=== PATIENT | female | born 1970 | race Hispanic/Latino ===

== ENCOUNTER 2016-07-21 11:38 | Day surgery (SDC) | payer BC ==
[~2016-07-21 11:38] MED LIST: HEPARIN SUB-Q NR; MARCAINE-EPI 0.25%-1:200,000 INFILTRATI ONE; ceFAZolin 2 GM in NACL 0.9% 100 ML IV ONE
[2016-07-21] MEDS ORDERED: ceFAZolin 2 GM in NACL 0.9% 100 ML IV NR (12:30)
--- NOTE | 2016-07-21 12:37 | Anesthesia Day of Surgery ---
Anesthesia Day of Surgery - Day of Surgery Patient Examined: Yes Patient H&P Reviewed: Yes Patient is NPO: Yes
--- NOTE | 2016-07-21 12:38 | Anesthesia Consultation ---
Anesthesia Consult and Med Hx Date of service: 07/21/16 - Airway Anesthetic Teeth Evaluation: Good ROM Head & Neck: Adequate Mental/Hyoid Distance: Adequate Mallampati Class: Class I Intubation Access Assessment: Good - Pulmonary Exam CTA: Yes - Cardiac Exam Cardiac Exam: RRR - Pre-Operative Health Status ASA Pre-Surgery Classification: ASA2 Proposed Anesthetic Plan: General - Pulmonary Hx Smoking: Yes (CIGARETTES 1 PPD X 26 YRS) Hx Respiratory Symptoms: No (seasonal allergy) Hx Sleep Apnea: No - Cardiovascular System Hx Hypertension: No (take red yeast to help with cholesterol) Hx Heart Attack/AMI: No - Central Nervous System Hx Seizures: No CVA: No - Endocrine Hx Renal Disease: No Hx Liver Disease: No Hx Non-Insulin Dependent Diabetes: No - Other Systems Hx Cancer: No Hx Obesity: No - Additional Comments Anesthesia Medical History Comments: NAC
[2016-07-21] MEDS ORDERED: DILAUDID IV PRN ×2 (12:39→15:24)
[2016-07-21] MEDS ORDERED: VERSED IV NR (13:00)
[2016-07-21] MEDS ORDERED: LACTATED RINGERS 1,000 ML IV SCH (13:00)
[2016-07-21] MEDS ORDERED: PEPCID PO NR (13:00)
[2016-07-21] MEDS ORDERED: DIPRIVAN 10 MG/ML IV ONE (13:50)
[2016-07-21] MEDS ORDERED: DECADRON ONE (13:50)
[2016-07-21] MEDS ORDERED: ZOFRAN ONE (13:50)
[2016-07-21] MEDS ORDERED: XYLOCAINE MPF 2% ONE (13:50)
[2016-07-21] MEDS ORDERED: DILAUDID ONE (13:51)
[2016-07-21] MEDS ORDERED: ZEMURON IV ONE (13:53)
[2016-07-21] MEDS ORDERED: ANCEF/STERILE WATER 2 GM/20 ML 2 GM/20 ML SYRINGE IV SCH (14:00)
[2016-07-21] MEDS ORDERED: TORADOL ONE (14:31)
[2016-07-21] MEDS ORDERED: MARCAINE-EPI 0.25%-1:200,000 INFILTRATI ONE (14:42)
[2016-07-21] MEDS ORDERED: NACL 0.9% IR ONE (14:43)
[2016-07-21] MEDS ORDERED: ROBINUL ONE ×2 (14:52→14:56)
[2016-07-21] MEDS ORDERED: NEOSTIGMINE ONE (14:52)
--- NOTE | 2016-07-21 15:03 | Short Stay Summary ---
Short Stay Documentation Date of service: 07/21/16 - Allergies and Medications Current Medications: Allergies codeine Allergy (Verified 07/14/16 12:02) Dizziness and Itching mushroom Allergy (Verified 07/14/16 12:02) Swelling and Hives Home Medications Medication Instructions Recorded Confirmed Last Taken Type Bupropion HCl [Wellbutrin XL] 300 mg PO QHS 07/14/16 07/14/16 07/20/16 History Cetirizine HCl [ZyrTEC] 10 mg PO QHS 07/14/16 07/14/16 07/20/16 History Cholecalciferol Vit D3 [Vitamin D3] 1,000 unit PO QHS 07/14/16 07/14/16 History Famotidine [Pepcid] 20 mg PO QHS 07/14/16 07/14/16 07/20/16 History Montelukast [Singulair] 10 mg PO QPM 07/14/16 07/14/16 07/20/16 History Multivitamin Tab [Multiple Vitamin 1 each PO QHS 07/14/16 07/14/16 07/20/16 History TAB (Theragran)] Red Yeast Rice 600 mg PO QHS 07/14/16 07/14/16 07/20/16 History Triamcinolone Acetonide [Nasacort 1 spray NS QDAY 07/14/16 07/21/16 07/21/16 10: 00 History SPRAY] Zolpidem [Ambien] 10 mg PO QHS 07/14/16 07/14/16 07/20/16 History diphenhydrAMINE [Benadryl CAP] 50 mg PO QHS PRN 07/14/16 07/14/16 07/20/16 History Active Medications Famotidine (Pepcid) 20 mg PO PREOP NR Stop: 07/21/16 23:59 Last Admin: 07/21/16 12:54 Dose: 20 mg Heparin Sodium (Porcine) (Heparin) 5,000 unit SUB-Q PREOP NR Stop: 07/21/16 23:59 Last Admin: 07/21/16 12:53 Dose: 5,000 unit Hydromorphone HCl (Dilaudid) 0.5 mg IV Q3H PRN PRN Reason: Pain , Severe (7-10) Last Admin: 07/21/16 12:54 Dose: 0.5 mg Lactated Ringer's (Lactated Ringers) 1,000 mls @ 100 mls/hr IV DIRECT XIMENA Last Admin: 07/21/16 12:53 Dose: 100 mls/hr Cefazolin Sodium (Ancef/Sterile Water 2 Gm/20 Ml) 2 gm in 20 mls @ 80 mls/hr IV PREOP XIMENA Stop: 07/21/16 23:59 Midazolam HCl (Versed) 2 mg IV PREOP NR Stop: 07/21/16 23:59 Last Admin: 07/21/16 12:54 Dose: 2 mg - Brief post op/procedure progress note Date of procedure: 07/21/16 Pre-op diagnosis: Biliary colic Post-op diagnosis: same Procedure: Lap micah Anesthesia: GETA, local Surgeon: AYSHA BA Barrel Assembly Inspector: CALLIE ESCALANTE Estimated blood loss: none Pathology: list (gallbladder) Condition: stable - Disposition Condition at discharge: Good Disposition: DC-01 TO HOME OR SELFCARE Short Stay Discharge Plan Activity: no restrictions Diet: regular Wound: remove dressing (07/23/16 and then my shower) Follow up with: PRIMARY CAREMD [Primary Care Provider] - 7 Days AYSHA BA MD [Staff Physician] - 7 Days Prescriptions: oxyCODONE /ACETAMINOPHEN [Percocet 5/325] 1 - 2 tab PO Q4HR PRN #30 tab PRN Reason: Pain Promethazine [Phenergan TAB] 25 mg PO Q6HR PRN #10 tab PRN Reason: Nausea
[2016-07-21 16:25] VITALS: BP 114/78
--- NOTE | 2016-07-21 19:26 | Operative Report ---
PREOPERATIVE DIAGNOSIS: Biliary colic. POSTOPERATIVE DIAGNOSIS: Biliary colic. PROCEDURE: Laparoscopic cholecystectomy. SURGEON: Slava Williamson MD. LITHOGRAPHIC PRESS FEEDER: Dr. Sloan. ANESTHESIA: General and local. ESTIMATED BLOOD LOSS: Minimal. SPECIMEN: Gallbladder. COMPLICATIONS: None. INDICATIONS: This is a 45-year-old female who has a workup consistent with biliary colic and is admitted for laparoscopic cholecystectomy. OPERATIVE COURSE: The patient was brought to the operating room, identified, and placed in the supine position. General anesthesia was achieved. Her abdomen was prepped in usual manner. Prior to all incisions, the area was injected with 0.25% Marcaine. Infraumbilical 5 mm incision was made using a Veress needle technique. The abdomen was insufflated to 15 mmHg pressure. A 5 mm trocar was inserted using a 30-degree 5 mm telescope. The other trocars were placed under direct vision, which included a 10 mm epigastric port site and two 5 mm right lateral ports. There were some adhesions in the right lateral abdomen which were taken down with combination of sharp and blunt dissection. No cautery was used and there were no signs of any injury to any structures in that area. We then grasped the gallbladder, elevated and tented up the triangle of Calot and then dissected out the cystic duct and artery. Once they were clearly identified going into the gallbladder, we placed clips in the duct proximally and distally, transected it and clips in the artery proximally and distally and transected. The gallbladder was removed from the bed using electrocautery, placed in an EndoCatch bag and delivered through the epigastric port site. The liver bed was hemostatic at the end of the procedure with clips in good position. The ports were removed under direct vision. No signs of bleeding from the port site, evacuated the CO2 and closed all the incisions with a 4-0 Vicryl suture, Steri-Strips and bandage. JOB# [id number] PASHA/IVY OROSCO
== END 2016-07-21 17:02 | disposition home or self-care (01) ==
LOC: OR 11:38
PROVIDERS: ATTEND Surgery
DX: K80.50 Calculus of bile duct without cholangitis or cholecystitis without obstruction (principal); F41.9 Anxiety disorder, unspecified; F32.9 Major depressive disorder, single episode, unspecified; K21.9 Gastro-esophageal reflux disease without esophagitis; F17.210 Nicotine dependence, cigarettes, uncomplicated; Z88.5 Allergy status to narcotic agent; Z91.018 Allergy to other foods; Z98.51 Tubal ligation status; Z90.710 Acquired absence of both cervix and uterus; Z98.890 Other specified postprocedural states; Z79.899 Other long term (current) drug therapy
CPT/HCPCS: 47562; 88304; J0690; J1100; J1170; J1644; J1885; J2250; J2405; J2704; J2710; J7120